=== PATIENT | female | born 1995 | race Caucasian/White ===

== ENCOUNTER → 2025-01-25 | Outpatient (CLI) | payer MEDICAID ==
[~2025-01-25] MED LIST: HYDR-1421
--- NOTE | 2025-01-30 14:10 | DVHSR ---
APPROVED REPORT EXAM: LIMITED Two-dimensional and M-mode echocardiogram with Doppler and color Doppler. DIMENSIONS LVDd4.7 (3.8-5.7cm)LA (2D)3.1 (1.9-4.0cm)Aortic Root2.8 (2.0-3.7cm) LVDs3.0 (2.5-4.0cm)LA (MM) (1.9-4.0cm)Aortic Cusp Exc1.5 (1.5-2.0cm) EF (%) 65.0 (55-70%)Rt. Atrium3.5 (1.9-4.0cm)Asc. Aorta cm IVSd1.1 (0.7-1.1cm)RV (D) (1.8-2.4cm) PWd0.9 (0.7-1.1cm) Mitral Valve MitralMitral Stenosis E wave0.70m/sMV Mean GR.mmHg A wave0.80m/sMV Peak GR.mmHg E/A ratio0.92D MVAcm2 Aortic Valve Aortic ValveAortic Stenosis V10.80m/Saul Mean GR.3mmHg V21.20m/Saul Peak GR.6mmHg LVOT Diameter2.1 (1.8-2.4cm)Doppler AVA2.31cm2 Pulmonic Valve V20.70m/s LEFT VENTRICLE The left ventricle is normal size. The left ventricle is normal in structure and function. The Ejection Fraction is within normal limits. RIGHT VENTRICLE The right ventricle is normal size. ATRIA The left atrial size is normal. The right atrium size is normal. The interatrial septum is intact with no evidence for an atrial septal defect. MITRAL VALVE The mitral valve is normal in structure and function. There is no mitral valve regurgitation noted. PULMONIC VALVE The pulmonic valve is not well visualized. TRICUSPID VALVE The tricuspid valve is grossly normal. AORTIC VALVE The aortic valve opens well. No aortic regurgitation is present. GREAT VESSELS The aortic root is normal size. PERICARDIAL EFFUSION There is no pericardial effusion. Other Information Quality : Rhythm : Abnormal. Conclusion EF >55%
== END | disposition home or self-care (01) ==
LOC: Rad HDHVI 15:08
PROVIDERS: ATTEND Internal Medicine Cardiovascular Disease
DX: R42 Dizziness and giddiness (principal)
CPT/HCPCS: 93306

== ENCOUNTER 2025-02-20 15:30 | Outpatient (CLI) | payer MEDICAID | END 2025-02-20 17:00 | disposition home or self-care (01) | LOC: Rad HDHVI 15:30 | PROVIDERS: ATTEND Internal Medicine Cardiovascular Disease | DX: R42 Dizziness and giddiness (principal) | CPT/HCPCS: 93880 ==

== ENCOUNTER → 2025-03-06 | Outpatient (CLI) | payer MEDICAID ==
[~2025-03-06] VITALS: Ht 157.5 cm; Wt 99.8 kg
[~2025-03-06] MED LIST changes: +ADENOSINE 84 MG in GIVE UN-DILUTED 0 ML IV ONE; +ADENOSINE 90 MG/30 ML INJ IV ONE
== END | disposition home or self-care (01) ==
LOC: Rad HDHVI 09:09
PROVIDERS: ATTEND Internal Medicine Cardiovascular Disease
DX: I49.3 Ventricular premature depolarization (principal); R00.0 Tachycardia, unspecified; R06.02 Shortness of breath; R07.89 Other chest pain; R55 Syncope and collapse; R42 Dizziness and giddiness; Z13.6 Encounter for screening for cardiovascular disorders
CPT/HCPCS: 78452; 93017; A9500; J0153